=== PATIENT | male | born 1955 | race Caucasian/White ===

== ENCOUNTER → 2019-12-21 | Outpatient (CLI) | payer BC ==
[~2019-12-21] MED LIST: FENTANYL CITRATE/PF 100MCG/2 ML INJ ONE; LACTATED RINGER'S 1,000 ML ONE; MIDAZOLAM HCL 2 MG/2 ML VIAL ONE
--- NOTE | 2019-12-21 15:33 | Diagnostic Imaging Report ---
History: C7 radiculopathy Comparison studies: None Technique: Sagittal T1, T2 and IR, axial T2 and axial gradient echo Intravenous contrast: None Findings: Alignment: Mild straightening of the cervical lordosis. No scoliosis. Cervicomedullary junction: No abnormalities. Patent foramen magnum. Soft tissues: No T2 hyperintense inflammatory changes. Spinal cord: Normal in size and signal from the foramen magnum through T4 Vertebrae: Normal in height and signal intensity. No fractures, infection or neoplasm. Degenerative changes: Disc degeneration with loss of T2 signal throughout the cervical spine, without endplate edema. C2-C3: Small central disc osteophyte complex results in no significant canal stenosis or foraminal narrowing C3-C4: Small central disc osteophyte complex without significant canal stenosis or foraminal narrowing C4-C5: Asymmetric left disc osteophyte complex, left uncinate process and facet hypertrophy results in mild canal stenosis and moderate left foraminal narrowing. C5-C6: Diffuse disc osteophyte complex, bilateral uncinate process and facet hypertrophy results in moderate canal stenosis, moderate right and severe left foraminal narrowing. C6-C7: Diffuse disc osteophyte complex, bilateral uncinate process and facet hypertrophy results in mild canal stenosis and severe bilateral foraminal narrowing more prominent on the left C7-T1: Bilateral uncinate process hypertrophy results in no significant canal stenosis and mild bilateral foraminal narrowing. IMPRESSION: 1. Moderate degenerative canal stenosis, moderate right and severe left degenerative foraminal narrowing at C5-6. 2. Moderate degenerative foraminal narrowing at C4-5. Severe degenerative bilateral foraminal narrowing at C6-7. 3. Other degenerative changes without significant (moderate or severe) canal stenosis or foraminal narrowing. Signed by: DR Jeff Alan M.D. on 12/21/2019 3:30 PM
== END ==
LOC: MRI 12-20 13:28
PROVIDERS: ATTEND Radiology Neuroradiology
DX: M54.12 Radiculopathy, cervical region (principal)
CPT/HCPCS: 72141; 93005; J2250; J3010; J7121

== ENCOUNTER → 2020-01-09 | Day surgery (SDC) | payer BC ==
[~2020-01-09] MED LIST changes: +ADVIL200 MG PO; +BUPIVACAINE HCL 0.5% INJ 30 ML VIAL INJ ONE; +CEFAZOLIN SOD 1 GM/NS 50ML 50 ML IV ONE; +CYCLOBENZAPRINE10 MG PO; +DEXAMETHASONE SOD PHOS INJ 4 MG/ML VIAL ONE; +GABAPENTIN300 MG PO; +KETOROLAC TROMETHAMINE 30 MG/ML VIAL ONE; -LACTATED RINGER'S 1,000 ML ONE; +LIDOCAINE HCL 2% LOCAL INJ 5 ML SDV VIAL INJ ONE; +MAGNESIUM MALATE1 GM PO; +MOBIC7.5 MG PO; +MUPIROCIN 2% OINT 22 GM TUBE ONE; +NORCO 7.5-3251 EACH PO; +ONDANSETRON HCL INJ 2MG/ML 2ML 2 MG/ML VIAL ONE; +PEPCID20 MG PO; +PROPOFOL IV EMULSION 10 MG/ML 20 ML VIAL ONE; +SEVOFLURANE INHAL SOLN 250 ML PEN BTL ONE; +ULTRAM 50MG50 MG PO; +VIT B1 PO; +VIT B12 PO; +VIT B6 PO; +VIT C PO; +VIT D3 PO; +ZINC LOZENGES1 EACH PO
--- OUTSIDE RECORDS SUMMARY | 2020-01-09 05:40 | XMS REPORT ---
Author Author [facility] Address Unknown Phone Unavailable Care Team Providers Care Mechanical Engineering Lecturer Name Role Phone TOY GOODRICH Unavailable Unavailable Payers Payer Name Policy Type Policy Number Effective Date Expiration Date Problems This patient has no known problems. Allergies, Adverse Reactions, Alerts Allergy Name Allergy Type Status Severity Reaction(s) Onset Date Inactive Date Treating Clinician Comments Sulfa (Sulfonamide Antibiotics) DA Active [place] 2009-10-09 00:00:00 Medications This patient has no known medications. Results Test Description Test Time Test Comments Text Results Atomic Results Result Comments INTERVERTEBRAL DISC 2019-12-28 15:45:00 RUN DATE: 12/28/19 [facility] PAGE 1 RUN TIME: 1545 Specimen Inquiry RUN USER: INTERFACE PATIENT: MARTIN AREVALO [facility] LOC: TRAN U #: [id number] AGE/SX: 64/M ROOM: [facility] RE12/25/19REG DR: Zaid Reynolds MD : 59 BED: A DIS: 12/26/19 STATUS: DIS [place] TLOC: SPEC #: [id number] RECD: 12/26/19 STATUS: JJ REQ #: [id number] IVY: 12/25/19- SUBM DR: Zaid Reynolds MD ENTERED: 12/26/19 SP TYPE: INT DISC OTHR DR: Self Referred Linda Black NPORDERED: GROSS COPIES TO: Self Referred Linda Black RATE SUPERVISOR [address] [place] [address] Zaid Reynolds MD [address] [address] PROCEDURES: GROSS (12/26/19) TISSUES: CERVICAL VERTEBRA, NOS - DISC CLINICAL HISTORY COLLECTION DATE: 12/25/19 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 The specimen consists of multiple light olvera-brown rubbery fragments of tissue and palpable bone measuring 3.2 x 3.2 x 0.5 cm in aggregate. Samples of the specimen are submitted for decalcification and follow up microscopic evaluation in a single cassette. GROSS PERFORMED AT [facility] [address] [place] [address] [phone] MICROSCOPIC All of the stains, including any controls performed, stain appropriately. MICROSCOPIC PERFORMED AT [facility] [address] [place] [address] [phone] PERFORMING SITE Processed at: [facility] [address] [place] [address] Signed SIGNATURE ON FILE Mikel Covarrubias MD 12/28/19 1545 ---- END OF REPORT - XR C-SPINE 2-3 VIEWS 2019-12-26 08:13:00 FAX: Linda Black RATE SUPERVISOR [phone] [place]: St: [facility] FAX: Y Zaid Reynolds MD [phone] Name: MICKEYMARTIN [facility] : 1955 Age/S: 64/M [address] [facility] Unit #: [id number] Loc: V.[address] [place] [address] Phys: Zaid Reynolds MD Acct: [id number] Dis Date: Status: ADM IN PHONE #: [phone] Exam Date: 12/26/2019804 FAX #: [phone] Reason: Status post fusion EXAMS: CPT CODE: [id number] XR C-SPINE 2-3 VIEWS 67[address] HISTORY: Status post fusion TECHNIQUE: AP and lateral views of the cervical spine. COMPARISON: None FINDINGS/ IMPRESSION: The patient has undergone anterior fusion of C5-C7 with placement of interbody bone grafts. The fused segment of the spine is appropriately aligned. The heights of the remaining vertebral bodies and intervertebral disc spaces are preserved. Small vertebral body osteophytes are present on C4 and there are syndesmophytes at C3-C4 and C4-C5. Regional soft tissues are within normal limits. Location: RR at 0813 Reported and signed by: Lloyd Fair MD CC: Linda Black RATE SUPERVISOR; Zaid Reynolds MD Technologist: Jen Fraire(R) Trnscrd Date/Time/By: 12/26/2019 (812) : By: [email or web address] Orig Print D/T: S: 12/26/2019 (6916) PAGE 1 Signed Report BASIC METABOLIC PANEL 2019-12-22 13:55:00 SODIUM (test code=NA) 139 mmol/L 136-145 POTASSIUM (test code=K) 4.5 mmol/L 3.5-5.1 CHLORIDE (test code=CL) 107.0 mmol/L 98-107 CARBON DIOXIDE (test code=CO2) 30.0 mmol/L 21-32 ANION GAP (test code=GAP) 6.5 10-20 GLUCOSE (test code=GLU) 92 mg/dL 74-106 BLOOD UREA NITROGEN (test code=BUN) 15 mg/dL 7-18 GLOMERULAR FILTRATION RATE (test code=GFR) > 60 mL/min >=60 Estimated GFR by using Modified MDRD formula.Chronic kidney disease is defined as either kidney damageor GFR <60 mL/min/1.73 m2 for >3 months. CREATININE (test code=CREAT) 1.00 mg/dL 0.7-1.3 BUN/CREATININE RATIO (test code=BUN/CREA) 15.0 10-20 CALCIUM (test code=CA) 9.2 mg/dL 8.5-10.1 BASIC METABOLIC [id number] 13:49:00* Test Item Value Reference Range Comments SODIUM (test code=NA) 139 mmol/L 136-145 POTASSIUM (test code=K) 4.5 mmol/L 3.5-5.1 CHLORIDE (test code=CL) 107.0 mmol/L 98-107 CARBON DIOXIDE (test code=CO2) mmol/L 21-32 ANION GAP (test code=GAP) 10-20 GLUCOSE (test code=GLU) mg/dL 74-106 BLOOD UREA NITROGEN (test code=BUN) mg/dL 7-18 GLOMERULAR FILTRATION RATE (test code=GFR) mL/min >=60 CREATININE (test code=CREAT) mg/dL 0.7-1.3 BUN/CREATININE RATIO (test code=BUN/CREA) 10-20 CALCIUM (test code=CA) mg/dL 8.5-10.1 - XR CHEST 2 [id number] 13:17:00 FAX: Linda Black NP [phone] [place]: O St: PRE FAX: Y Zaid Reynolds MD [phone] Name: MARTIN AREVALO [facility] : 1955 Age/S: 64/M [address] [facility] Unit #: [id number] Loc: [facility] [place] [address] Phys: Zaid Reynolds MD Acct: [id number] Dis Date: Status: PRE IN PHONE #: [phone] Exam Date: 12/22/2019 1220 FAX #: [phone] Reason: PRE OP EXAMS: CPT CODE: [id number] XR CHEST 2 V 17165 REASON FOR EXAM: PRE OP Exam Order Date: 12/22/2019 12:09 PM Ordering M.D.: Zaid Reynolds MD PROCEDURE: - XR CHEST 2 V COMPARISON: 2 view chest x-ray October 11, 2009 FINDINGS: The lungs are clear. Eventration of the diaphragm is new from the prior exam. There is no pleural effusion or pneumothorax. Pulmonary vascularity is within normal limits. Cardiomediastinal silhouette is normal in size for technique. The mediastinal contours are within normal limits. Degenerative changes are present in the spine. There has been a prior cholecystectomy. IMPRESSION: No acute cardiopulmonary process. Location: [facility] at 1317 Reported and signed by: Lloyd Fair MD CC: Linda Black RATE SUPERVISOR; Zaid Reynolds MD Technologist: Ewelina Wolfe RT(R) Trnscrd Date/Time/By: 12/22/2019 (3123) : By: [email or web address] Orig Print D/T: S: 12/22/2019 (6964) PAGE 1 Signed Report PROTHROMBIN [id number] 12:50:00* Test Item Value Reference Range Comments PROTHROMBIN TIME PATIENT (test code=PTP) 12.0 seconds 9.0-14.0 INTERNATIONAL NORMAL RATIO (test code=INR) 1.0 0.8-1.2 The therapeutic range for oral anticoagulant therapy formost indications is an international normalized ratio (INR)of between 2.0 and 3.0. The recommended therapeutic INRrange for various clinical situations is listed below: Clinical Situation INR range Pulmonary e mbolism treatment (2.0-3.0)Venous thrombosis treatmentVenous thrombosis prophylaxis (high risk surgery)Prevention of systemic embolism from: Acute myocardial infarction Valvular heart disease Atrial fibrillation Mechanical prosthetic heart valves (2.5-3.5) THROMBOPLASTIN TIME [id number] 12:50:00* Test Item Value Reference Range Comments THROMBOPLASTIN TIME PARTIAL (test code=PTT) 36.5 seconds 25.0-36.5 CBC W/AUTO [id number] 12:46:00* Test Item Value Reference Range Comments WHITE BLOOD CELL (test code=WBC) K/mm3 4.5-12.5 RED BLOOD CELL (test code=RBC) mill/mm3 4.0-5.8 HEMOGLOBIN (test code=HGB) 16.1 gram/dL 13.0-17.5 HEMATOCRIT (test code=HCT) 46.4 % 42.0-52.0 MEAN CELL VOLUME (test code=MCV) fL 80-98 MEAN CELL HGB (test code=MCH) picogram 27.0-33.0 MEAN CELL HGB CONCETRATION (test code=MCHC) gram/dL 33.0-36.0 RED CELL DISTRIBUTION WIDTH (test code=RDW) % 11.6-16.2 RED CELL DISTRIBUTION WIDTH SD (test code=RDW-SD) fL 37.0-51.0 PLATELET COUNT (test code=PLT) K/mm3 150-450 MEAN PLATELET VOLUME (test code=MPV) fL 6.7-11.0 NEUTROPHIL % (test code=NT%) % 39.0-69.0 IMMATURE GRANULOCYTE % (test code=IG%) % 0.0-5.0 LYMPHOCYTE % (test code=LY%) % 25.0-55.0 MONOCYTE % (test code=MO%) % 0.0-10.0 EOSINOPHIL % (test code=EO%) % 0.0-5.0 BASOPHIL % (test code=BA%) % 0.0-1.0 NEUTROPHIL # (test code=NT#) K/mm3 1.8-7.7 LYMPHOCYTE # (test code=LY#) K/mm3 1.0-5.0 MONOCYTE # (test code=MO#) K/mm3 0-0.8 EOSINOPHIL # (test code=EO#) K/mm3 0.0-0.5 BASOPHIL # (test code=BA#) K/mm3 0.0-0.2 CBC W/AUTO [id number] 12:46:00* Test Item Value Reference Range Comments WHITE BLOOD CELL (test code=WBC) 8.0 K/mm3 4.5-12.5 RED BLOOD CELL (test code=RBC) 5.35 mill/mm3 4.0-5.8 HEMOGLOBIN (test code=HGB) 16.1 gram/dL 13.0-17.5 HEMATOCRIT (test code=HCT) 46.4 % 42.0-52.0 MEAN CELL VOLUME (test code=MCV) 86.7 fL 80-98 MEAN CELL HGB (test code=MCH) 30.1 picogram 27.0-33.0 MEAN CELL HGB CONCETRATION (test code=MCHC) 34.7 gram/dL 33.0-36.0 RED CELL DISTRIBUTION WIDTH (test code=RDW) 13.2 % 11.6-16.2 RED CELL DISTRIBUTION WIDTH SD (test code=RDW-SD) 41.0 fL 37.0-51.0 PLATELET COUNT (test code=PLT) 289 K/mm3 150-450 MEAN PLATELET VOLUME (test code=MPV) 9.5 fL 6.7-11.0 NEUTROPHIL % (test code=NT%) 57.9 % 39.0-69.0 IMMATURE GRANULOCYTE % (test code=IG%) 0.4 % 0.0-5.0 LYMPHOCYTE % (test code=LY%) 28.5 % 25.0-55.0 MONOCYTE % (test code=MO%) 10.3 % 0.0-10.0 EOSINOPHIL % (test code=EO%) 1.9 % 0.0-5.0 BASOPHIL % (test code=BA%) 1.0 % 0.0-1.0 NUCLEATED RBC % (test code=NRBC%) 0.0 % 0-0 NEUTROPHIL # (test code=NT#) 4.66 K/mm3 1.8-7.7 IMMATURE GRANULOCYTE # (test code=IG#) 0.03 x10 3/uL 0-0.03 LYMPHOCYTE # (test code=LY#) 2.29 K/mm3 1.0-5.0 MONOCYTE # (test code=MO#) 0.83 K/mm3 0-0.8 EOSINOPHIL # (test code=EO#) 0.15 K/mm3 0.0-0.5 BASOPHIL # (test code=BA#) 0.08 K/mm3 0.0-0.2 NUCLEATED RBC # (test code=NRBC#) 0.00 K/mm3 0.0-0.1 MRI SPINE CERVICAL [id number] 15:25:00 [place] [address] Patient Name: MARTIN AREVALO MR #: [id number] : 1955 Age/Sex: 64/M Req #: [id number] Physician: Ordered by: TOY GOODRICH MD Report #: [id number] Location: MRI Room/Bed: Procedure: [id number] MRI/MR I SPINE CERVICAL WO Exam Date: Exam Time: REPORT STATUS: Signed History: C7 radicu lopathy Comparison studies: None Technique: Sagittal T1, T2 and IR, ax ial T2 and axial gradient echo Intravenous contrast: None Findings: Alignment: Mild straightening of the cervical lordosis. No scoliosis. Cervic omedullary junction: No abnormalities. Patent foramen magnum. Soft tissues: N o T2 hyperintense inflammatory changes. Spinal cord: Normal in size and signal from the foramen magnum through T4 Vertebrae: Normal in height and sig nal intensity. No fractures, infection or neoplasm. Degenerative changes: Disc degeneration with loss of T2 signal throughout the cervical spine, wi thout endplate edema. C2-C3: Small central disc osteophyte complex resu lts in no significant canal stenosis or foraminal narrowing C3-C4: Smal l central disc osteophyte complex without significant canal stenosis or forami nal narrowing C4-C5: Asymmetric left disc osteophyte complex, left uncina te process and facet hypertrophy results in mild canal stenosis and moderate l eft foraminal narrowing. C5-C6: Diffuse disc osteophyte complex, bilate ral uncinate process and facet hypertrophy results in moderate canal stenosis, moderate right and severe left foraminal narrowing. C6-C7: Diffuse disc osteophyte complex, bilateral uncinate process and facet hypertrophy results in mild canal stenosis and severe bilateral foraminal narrowing more prominent on the left C7-T1: Bilateral uncinate process hypertrophy results in no significant canal stenosis and mild bilateral foraminal narrowing. IMPRE SSION: 1. Moderate degenerative canal stenosis, moderate right and severe left degenerative foraminal narrowing at C5-6. 2. Moderate degenerative foraminal narrowing at C4-5. Severe degenerative bilateral foraminal narrowing at C6-7. 3. Other degenerative changes without significant (moderate or s evere) canal stenosis or foraminal narrowing. Signed by: DR Jeff Alan M.D. on 12/21/2019 3:30 PM Dictated By: JEFF ZHOU MD El ectronically Signed By: JEFF ZHOU MD on 12/21/19 153 Transcribed By: EWA on 12/21/191529 COPY TO: TOY GOODRICH MD
--- OUTSIDE RECORDS SUMMARY | 2020-01-09 05:40 | XMS REPORT | Summary of Care ---
Author Author RENAY HUSAIN M.D. Organization Unknown Address Unknown Phone Unavailable Care Team Providers Care Software Engineer Intern Name Role Phone RENAY HUSAIN M.D. 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 Quantity: 5 R.N. * Start : 10-Dec-2017 Active Ampicillin 500 MG Oral Capsule TAKE 1 CAPSULE EVERY 6 HOURS * Quantity: 30 Refills: 0 RENAY HUSAIN M.D. * Start : 10-Dec-2017 Active Allergies and Adverse Reactions Name Dates Details sulfa (Allergy) Status: Active Procedures Procedure Dates Details Procedures not documented Immunization Name Dates Details Immunizations not documented Social History Name Dates Details Unknown if ever smoked Vital Signs Date Test Result Details 2-Xtz-074807:40 BP Systolic 133 mm[Hg] Status: Comments: Location: [facility]; BP Diastolic 83 mm[Hg] Status: Comments: Location: RUE; Height 66 in Status: Weight 254 lb Status: Body Mass Index Calculated 41 kg/m2 Status: Body Surface Area Calculated 2.21 m2 Status: Temperature 98.3 f Status: Comments: Method: Oral Heart Rate 75 /min Status: Comments: Location: R Brachial Artery; Quality: Regular Results Date Description Value Details 3-Vpu-192329:38 [[facility]] CBC (INCLUDES DIFF/PLT) WBC 10.0 {K/CMM} Range: 3.7-10.4 RBC 5.33 {M/CMM} Range: 4.70-6.10 Hgb 16.7 g/dl Range: 14.0-18.0 Hct 46.9 % Range: 42.0-54.0 MCV 87.9 fL Range: 80.0-94.0 MCH 31.4 pg (Above high threshold) Range: 27.0-31.0 MCHC 35.7 g/dl Range: 32.0-36.0 RDW 13.8 % Range: 11.5-14.5 Platelet 273 {K/CMM} Range: 133-450 Mean Platelet Volume 8.7 fL Range: 7.4-10.4 2-Ogu-[id number] [[facility]] Differential Segmented Neutrophils 63.2 % Range: 45.0-75.0 Monocytes 10.7 % Range: 2.0-12.0 Lymphocytes 23.5 % Range: 20.0-40.0 Eosinophils 1.7 % Range: 0.0-4.0 Basophils 0.9 % Range: 0.0-1.0 Segs-Bands # 6.3 {K/CMM} Range: 1.5-8.1 Lymphocytes # 2.3 {K/CMM} Range: 1.0-5.5 Monocytes # 1.1 {K/CMM} (Above high threshold) Range: 0.0-0.8 Eosinophils # 0.2 {K/CMM} Range: 0.0-0.5 Basophils # 0.1 {K/CMM} Range: 0.0-0.2 3-[id number] [[facility]] URINALYSIS, COMPLETE UA Turbidity Clear Range: Clear UA Spec Grav 1.006 Range: <=1.030 UA pH 6.0 Range: 5.0-8.0 UA Protein Negative mg/dl Range: Negative UA Glucose Negative mg/dl Range: Negative UA Ketones Negative mg/dl Range: Negative UA Bili Negative Range: Negative UA Blood Negative Range: Negative UA Nitrite Negative Range: Negative UA Leuk Est Negative Range: Negative UA RBC <1 {/HPF} Range: 0-2 UA WBC <1 {/HPF} Range: 0-5 UA Mucus Few {/LPF} Range: None Seen UA Sq Epi None Seen {/LPF} UA Color Ltyellow UROBILINOGEN <=1.0 mg/dl Range: 0.1-1.0 Plan of Care Name Dates Details Planned Observations Planned Goals not documented Interventions Provided Discussion/Summary* Complete blood count and urine are normal. I will be interested in what the other * doctors have to say.NB Instructions Name Dates Details Instructions not documented Encounters Appointment; RENAY HUSAIN M.D. Encounter Diagnosis: Problem not documented On: 2-Mar-2018 14:30
[2020-01-09 09:35] VITALS: BP 139/92
--- NOTE | 2020-01-09 11:49 | Operative Report ---
DATE OF PROCEDURE: 01/09/2020 SURGEON: Zach Orourke MD PREOPERATIVE DIAGNOSES: 1. Cubital tunnel syndrome, left side. 2. Carpal tunnel syndrome, left side. POSTOPERATIVE DIAGNOSES: 1. Cubital tunnel syndrome, left side. 2. Carpal tunnel syndrome, left side. 3. Flexor tenosynovitis, left wrist. PROCEDURES: 1. Left ulnar nerve transposition. 2. Flexor pronator muscle flap. 3. Left open carpal tunnel release. 4. Flexor tenosynovectomy, left wrist. ANESTHESIA: General. HISTORY: The patient is a 64year-old male with EMG-proven left cubital tunnel syndrome and left carpal tunnel syndrome. The risks, benefits, and alternatives of treatment were discussed with the patient, and they are prepared to undergo the procedures outlined. DESCRIPTION OF PROCEDURE: The patient was brought to the operating theater and after the induction of adequate general inhalation anesthesia was prepped and draped in a supine position. A timeout was performed by the entire operating room team. An incision was marked out from the medial epicondyle extending both proximally and distally for approximately 4-5 cm in the left limb. The left upper extremity was exsanguinated, and the tourniquet was inflated to a pressure of 250 mmHg. The incision was made through the skin and subcutaneous tissues, and all venous tributaries were controlled using the electrocautery. The incision was deepened through the subcutaneous tissue, and all the sensory, medial, antebrachial and cutaneous branches that were identified were protected and preserved throughout the dissection. At this point, the dissection was continued directly onto the medial epicondyle. The skin and subcutaneous tissues were then elevated off the medial epicondyle and the flexor pronator muscle mass. Proximal to the medial epicondyle the intramuscular septum was identified, and the ulnar nerve was identified just posterior to the intramuscular septum. The overlying tissue over the ulnar nerve was gently incised, taking care to protect and preserve the ulnar nerve. With the ulnar nerve in site, the overlying tissue was incised from proximal to distal through the cubital tunnel releasing the compressing structures of the ulnar nerve. At the distal aspect of the cubital tunnel, the flexor pronator muscle mass was divided, and the dissection of the ulnar nerve continued until the 1st and 2nd muscular branches were identified. At this point, the medial epicondyle was marked out and an incision approximately 1.5 cm from the epicondyle was made through the fascial and muscular tissues using the electrocautery. Hemostasis was made absolute using the electrocautery. The entire flexor pronator muscle mass was elevated out of its bed in order to allow transposition of the nerve. The nerve was then gently elevated out of the cubital tunnel using a Victor drain for traction. The posterior attachments were released, and the nerve was then transposed anteriorly. The transposition was noted to provide adequate relief of tension from the compressing structures on the nerve. The medial intramuscular septum was excised from the medial epicondyle and for a distance of several centimeters proximally in order to prevent compression. With the nerve transposed submuscularly, the elbow was placed through a range of motion and there was noted to be good gliding of the nerve and no kinking or acuity throughout its course. At this point, the flexor pronator muscle mass was repaired to the cuff of tissue on the medial epicondyle using 2-0 Vicryl in an interrupted horizontal mattress fashion. The elbow was placed through a range of motion again and the nerve was visualized and there was noted to be no compression. A 2.5 cm incision was marked out in the intrathenar space. The incision was deepened through the palmar fascia until the transverse carpal ligament was identified. The ligament was sharply sectioned, taking care to protect and preserve the median nerve underlying it. After the complete width of the ligament had been transected, the distal volar forearm fascia was divided under direct view. Proliferative flexor tenosynovium was noticed to encompass the median nerve and this was radically excised. After performing this maneuver, the nerve was noted to lie adequately decompressed. The wound was then copiously irrigated with bacteriostatic saline and closed in layers. A 4-0 Vicryl was used in an interrupted buried fashion to approximate the deep dermis and 5-0 nylon was used in an interrupted horizontal mattress fashion. A Marcaine field block was performed at the operative site. The tourniquet was deflated. All the fingers pinked up nicely and a sterile bulky conforming bandage was applied from the axilla to the hand. A fiberglass splint was fashioned to maintain the elbow at approximately 90 degrees of flexion and this was held in place with a loosely wrapped Jas wrap. The estimated blood loss of the procedure was negligible. The patient tolerated the procedure well and was brought to the recovery room in satisfactory condition and discharged with a postoperative instruction sheet as well as a followup appointment. MD NAA Cabral/LJ /[id number]
== END | disposition home or self-care (01) ==
LOC: OR 05:38
PROVIDERS: ATTEND Plastic Surgery
DX: G56.22 Lesion of ulnar nerve, left upper limb (principal); M65.832 Other synovitis and tenosynovitis, left forearm; G56.02 Carpal tunnel syndrome, left upper limb; Z88.2 Allergy status to sulfonamides
CPT/HCPCS: 25115; 64718; J0690; J1100; J1885; J2001; J2250; J2405; J2704; J3010

== ENCOUNTER 2020-02-12 13:47 | Emergency (ER) | payer BC ==
[~2020-02-12] VITALS: Ht 170.2 cm; Wt 106.6 kg
[~2020-02-12 13:47] MED LIST changes: -BUPIVACAINE HCL 0.5% INJ 30 ML VIAL INJ ONE; -CEFAZOLIN SOD 1 GM/NS 50ML 50 ML IV ONE; -DEXAMETHASONE SOD PHOS INJ 4 MG/ML VIAL ONE; -FENTANYL CITRATE/PF 100MCG/2 ML INJ ONE; -KETOROLAC TROMETHAMINE 30 MG/ML VIAL ONE; -LIDOCAINE HCL 2% LOCAL INJ 5 ML SDV VIAL INJ ONE; -MIDAZOLAM HCL 2 MG/2 ML VIAL ONE; -MUPIROCIN 2% OINT 22 GM TUBE ONE; -ONDANSETRON HCL INJ 2MG/ML 2ML 2 MG/ML VIAL ONE; -PROPOFOL IV EMULSION 10 MG/ML 20 ML VIAL ONE; -SEVOFLURANE INHAL SOLN 250 ML PEN BTL ONE
[2020-02-12] MEDS ORDERED: SODIUM CHLORIDE 0.9% 500ML 500 ML IV STA (14:03)
[2020-02-12] MEDS ORDERED: MORPHINE SULFATE INJ 4 MG/ML INJ 1ML IV STA (14:03)
[2020-02-12] MEDS ORDERED: ONDANSETRON HCL INJ 2MG/ML 2ML 2 MG/ML VIAL IV STA (14:03)
[2020-02-12 15:07] LABS: BASOPHILS # (AUTO) 0.1 (0.0-0.1); BASOPHILS % 0.4 % (0.0-1.0); EOSINOPHILS # (AUTO) 0.1 (0.0-0.4); EOSINOPHILS % 0.9 % (0.0-6.0); HEMATOCRIT 46.8 % (38.2-49.6); HEMOGLOBIN 16.3 g/dL (14.0-18.0); LYMPHOCYTES # (AUTO) 1.3 (1.0-3.2); LYMPHOCYTES % 10.1 % (18.0-39.1); MEAN CORPUSCULAR HEMOGLOBIN 30.5 pg (28-32); MEAN CORPUSCULAR HGB CONC 34.8 g/dL (31-35); MEAN CORPUSCULAR VOLUME 87.6 fL (81-99); MONOCYTES % 7.6 % (4.4-11.3); NEUTROPHILS # (AUTO) 10.4 (2.1-6.9); NEUTROPHILS % 80.5 % (38.7-80.0); PLATELET COUNT 256 x10e3/uL (140-360); RED BLOOD COUNT 5.34 x10e6/uL (4.3-5.7); RED CELL DISTRIBUTION WIDTH 13.1 % (11.7-14.4)
[2020-02-12 15:20] LABS: ANION GAP 13.3 mmol/L (8-16); BLOOD UREA NITROGEN 15 mg/dL (7-26); BUN/CREATININE RATIO 17 (6-25); CALCIUM 9.5 mg/dL (8.4-10.2); CARBON DIOXIDE 24 mmol/L (22-29); CHLORIDE 102 mmol/L (98-107); CREATININE, SERUM 0.86 mg/dL (0.72-1.25); EST GLOMERULAR FILTRATION RATE > 60 ML/MIN (60-); GLUCOSE 165 mg/dL (74-118); POTASSIUM 4.3 mmol/L (3.5-5.1); SODIUM 135 mmol/L (136-145)
[2020-02-12 15:36] LABS: BILIRUBIN,URINE NEGATIVE (NEGATIVE); CLARITY,URINE SL CLOUDY (CLEAR); COLOR,URINE YELLOW (YELLOW); KETONES,URINE TRACE (NEGATIVE); LEUKOCYTE ESTERASE ,URINE NEGATIVE (NEGATIVE); NITRITE,URINE NEGATIVE (NEGATIVE); PROTEIN,URINE DIPSTICK NEGATIVE (NEGATIVE); URINE UROBILINOGEN 0.2 mg/dL (0.2 - 1)
[2020-02-12] MEDS ORDERED: GADOBENATE DIMEGLUMINE 0 ML IV ONE (15:39)
[2020-02-12] MEDS ORDERED: CYCLOBENZAPRINE HCL 10 MG TAB PO ONE (15:45)
--- NOTE | 2020-02-12 15:47 | NUR ---
Patient currently recieving MRI.
[2020-02-12 15:49] LABS: BACTERIA,URINE MODERATE /HPF; EPITHELIAL CELLS,URINE FEW /LPF
[2020-02-12] MEDS ORDERED: LORAZEPAM INJ 2 MG/ML VIAL IV ONE (16:00)
--- NOTE | 2020-02-12 16:30 | NUR ---
Pt unable to tolerate MRI, refused to go through with testing.
--- NOTE | 2020-02-12 16:54 | NUR ---
Pt currently receiving ct scan.
--- NOTE | 2020-02-12 17:58 | Diagnostic Imaging Report ---
EXAMINATION: CT of the lumbar spine HISTORY: Severe back pain for last 5 days with numbness COMPARISON: None available TECHNIQUE: Multidetector helical axial images were obtained without contrast from L1 to S1. The images were reconstructed in sagittal, and coronal planes. Dose modulation, iterative reconstruction, and/or weight based adjustment of the mA/kV was utilized to reduce the radiation dose to as low as reasonably achievable. FINDINGS: Alignment: Normal lumbar lordosis. Vertebral bodies: Minimal chronic anterior wedging of the T12, L4 and L5 vertebral bodies. Chronic endplate degenerative changes from L4 through S1. Shallow Schmorl's nodes from T11 to L4. Otherwise normal height and density. Paraspinal muscles: Normal. Intervertebral disks: L1-L2: Mild symmetric disc bulge, no canal or foraminal stenosis. L2-L3: Mild symmetric disc bulge, posterior central disc osteophyte, ligamentum flavum thickening and mild facet arthropathy. Mild canal and foraminal narrowing. L3-L4: Dictated disc height, mild symmetric disc bulge, marginal endplate osteophyte asymmetric to the right, bilateral facet arthrosis. Mild spinal canal stenosis. Severe right and moderate left foraminal stenosis. L4-L5: Decreased disc height, significant disc bulge, marginal endplate osteophytes and moderate facet arthrosis as well as ligamentum flavum thickening. Moderate spinal canal and bilateral foraminal stenoses. L5-S1: Dictated disc height, symmetric disc bulge, marginal endplate osteophytes, bilateral facet arthrosis. Moderately severe bilateral foraminal stenoses. Sacroiliac joints: Degenerative changes with bridging also 5 bilaterally. IMPRESSION: 1. Mild degenerative spinal canal stenoses at L2-L3 and L3-L4 and moderate at L4-L5. 2. Moderate to severe degenerative foraminal stenoses from L3-L4 to L5-S1 as detailed above. Signed by: Dr. Marian Story M.D. on 02/12/2020 5:55 PM
[2020-02-12 18:26] VITALS: BP 126/82
== END 2020-02-12 18:33 | disposition home or self-care (01) ==
LOC: ER 13:47
DX: M54.16 Radiculopathy, lumbar region (principal)
CPT/HCPCS: 36415; 72131; 80048; 81001; 85025; 99284; J2060; J2270; J2405; J7040